=== PATIENT | male | born 1940 | race Caucasian/White ===

== ENCOUNTER 2017-06-29 08:32 | Emergency (ER) | payer MEDICARE, BC ==
[~2017-06-29] VITALS: Ht 172.7 cm; Wt 97.3 kg
[~2017-06-29 08:32] MED LIST: ACIPHEX20 MG PO; DIFLUCAN100 MG PO; LIPITOR20 MG PO; ZETIA10 MG PO
[2017-06-29] MEDS ORDERED: HYDROCO/APAP1 TA9 PO (09:07)
[2017-06-29 09:17] LABS: HEMATOCRIT 47.3 % (39.0-50.0); HEMOGLOBIN 15.6 g/dl (14.0-18.0); IMMATURE GRANULOCYTES 0.4 % (0.0-1.0); MEAN CELL VOLUME 97.5 fL CALC (80.0-100.0); MEAN CORPUSCULAR HGB 32.2 pG CALC (26.0-32.0); NEUT# 10.19 thou/uL (1.82-7.42); RED BLOOD COUNT 4.85 mill/uL (4.70-6.10); RED CELL DISTRI WIDTH 13.2 % (11.5-15.5)
[2017-06-29 09:44] LABS: ALBUMIN 4.5 g/dL (3.2-5.0); ALKALINE PHOSPHATASE 93 u/l (38-126); AMYLASE 78 u/l (30-110); ANION GAP 18 (6-22 (CALC)); BILIRUBIN, TOTAL 0.5 mg/dL (0.0-1.4); BUN 24 mg/dL (8-23); BUN/CREATININE RATIO 20 (12-20 (CALC)); CARBON DIOXIDE 24 mmol/l (22-30); CHLORIDE 104 mmol/l (95-108); CREATININE 1.2 mg/dL (0.7-1.3); GFR 59 ML/MIN (>=60 (CALC)); GFR FOR AFR.AMER. > 60 ML/MIN (>=60 (CALC)); LIPASE 98 u/l (23-300); POTASSIUM 4.1 mmol/l (3.5-5.1); SGPT/ALT 23 u/l (11-66); SODIUM 143 mmol/l (137-146); TOTAL PROTEIN 8.1 g/dL (6.3-8.2)
[2017-06-29 09:46] LABS: SGOT/AST 37 u/l (19-48)
[2017-06-29 09:52] LABS: MYOGLOBIN 58 ng/mL (0 - 121)
[2017-06-29 10:21] LABS: URINE BILIRUBIN - DIPSTICK NEGATIVE (NEGATIVE); URINE BLOOD DIPSTICK LARGE (NEGATIVE); URINE COLOR YELLOW; URINE GLUCOSE - DIPSTICK NEGATIVE (NEGATIVE); URINE KETONE NEGATIVE (NEGATIVE); URINE LEUK ESTERASE NEGATIVE (NEGATIVE); URINE NITRITE - DIPSTICK NEGATIVE (Negative); URINE PROTEIN - DIPSTICK TRACE mg/dL (NEG-TRACE); URINE SPECIFIC GRAVITY >=1.030; URINE UROBILINOGEN - DIPSTICK 0.2 E.U./dL (0.2)
[2017-06-29 10:23] LABS: URINE CLARITY SL CLOUDY
[2017-06-29] MEDS ORDERED: TAMSULOSIN0.4 MG PO (11:40)
[2017-06-29] MEDS ORDERED: PERCOCET 5/325M1 TAB PO (11:40)
[2017-06-29] MEDS ORDERED: CIPROFLOXACIN250 MG PO (11:40)
[2017-06-29 12:36] VITALS: BP 131/71
== END 2017-06-29 12:36 | disposition home or self-care (01) ==
LOC: ED 08:32
PROVIDERS: Emergency Medicine
DX: N13.2 Hydronephrosis with renal and ureteral calculous obstruction (principal); R10.32 Left lower quadrant pain; R11.2 Nausea with vomiting, unspecified

== ENCOUNTER 2017-07-01 19:08 | Emergency (ER) | payer MEDICARE, BC ==
[~2017-07-01] VITALS: Ht 172.7 cm; Wt 97.2 kg
[~2017-07-01 19:08] MED LIST changes: +CIPROFLOXACIN250 MG PO; +HYDROCO/APAP1 TA9 PO; +PERCOCET 5/325M1 TAB PO; +TAMSULOSIN0.4 MG PO
[2017-07-01 19:50] LABS: HEMATOCRIT 43.3 % (39.0-50.0); HEMOGLOBIN 14.3 g/dl (14.0-18.0); IMMATURE GRANULOCYTES 0.4 % (0.0-1.0); MEAN CELL VOLUME 97.7 fL CALC (80.0-100.0); MEAN CORPUSCULAR HGB 32.3 pG CALC (26.0-32.0); NEUT# 10.47 thou/uL (1.82-7.42); RED BLOOD COUNT 4.43 mill/uL (4.70-6.10); RED CELL DISTRI WIDTH 13.3 % (11.5-15.5)
[2017-07-01 20:09] LABS: ALBUMIN 4.2 g/dL (3.2-5.0); ALKALINE PHOSPHATASE 88 u/l (38-126); AMYLASE 34 u/l (30-110); ANION GAP 18 (6-22 (CALC)); BILIRUBIN, TOTAL 0.7 mg/dL (0.0-1.4); BUN 19 mg/dL (8-23); BUN/CREATININE RATIO 15 (12-20 (CALC)); CARBON DIOXIDE 27 mmol/l (22-30); CHLORIDE 100 mmol/l (95-108); CREATININE 1.2 mg/dL (0.7-1.3); GFR 59 ML/MIN (>=60 (CALC)); GFR FOR AFR.AMER. > 60 ML/MIN (>=60 (CALC)); LIPASE 42 u/l (23-300); POTASSIUM 4.2 mmol/l (3.5-5.1); SGOT/AST 23 u/l (19-48); SGPT/ALT 33 u/l (11-66); SODIUM 140 mmol/l (137-146); TOTAL PROTEIN 7.3 g/dL (6.3-8.2)
[2017-07-01 20:09] LABS: URINE BILIRUBIN - DIPSTICK NEGATIVE (NEGATIVE); URINE BLOOD DIPSTICK LARGE (NEGATIVE); URINE COLOR YELLOW; URINE GLUCOSE - DIPSTICK NEGATIVE (NEGATIVE); URINE KETONE 15 mg/dL (NEGATIVE); URINE LEUK ESTERASE TRACE (NEGATIVE); URINE NITRITE - DIPSTICK NEGATIVE (Negative); URINE PROTEIN - DIPSTICK TRACE mg/dL (NEG-TRACE); URINE UROBILINOGEN - DIPSTICK 0.2 E.U./dL (0.2)
[2017-07-01 20:16] LABS: URINE CLARITY CLEAR
[2017-07-01 20:32] LABS: URINE RBC TNTC RBC/hpf (0-5)
[2017-07-01 20:33] LABS: URINE SQUAMOUS EPITHELIAL CELL FEW EPI/hpf (0-FEW)
[2017-07-01] MEDS ORDERED: CIPROFLOXACN500 MG PO (21:16)
[2017-07-01] MEDS ORDERED: MIRALAX3350 N1 PO (21:19)
[2017-07-01 21:52] VITALS: BP 138/93
== END 2017-07-01 22:06 | disposition home or self-care (01) ==
LOC: ED 19:08
PROVIDERS: Emergency Medicine
DX: N13.6 Pyonephrosis (principal); I10 Essential (primary) hypertension; R50.9 Fever, unspecified; R10.32 Left lower quadrant pain
CPT/HCPCS: J1956; Q9967

== ENCOUNTER 2022-03-18 14:03 | Emergency (ER) | payer MEDICARE, BC ==
[~2022-03-18] VITALS: Ht 172.7 cm; Wt 81.0 kg
[~2022-03-18 14:03] MED LIST changes: +CIPROFLOXACN500 MG PO; +MIRALAX3350 N1 PO
[2022-03-18] MEDS ORDERED: DOXY-CAPS100 MG PO (15:46)
[2022-03-18 15:52] VITALS: BP 141/100
== END 2022-03-18 16:09 | disposition home or self-care (01) ==
LOC: ED 14:03
DX: S61.411A Laceration without foreign body of right hand, initial encounter (principal); W22.09XA Striking against other stationary object, initial encounter

== ENCOUNTER 2022-05-19 09:24 | Day surgery (SDC) | payer MEDICARE, BC ==
[~2022-05-19] VITALS: Ht 172.7 cm; Wt 83.0 kg
[~2022-05-19 09:24] MED LIST changes: +BUPROPION150 M3 PO; +DOXY-CAPS100 MG PO; +OMEPRAZOLE DR40 MG PO
[2022-05-19 11:15] VITALS: BP 152/82
== END 2022-05-19 11:33 | disposition home or self-care (01) ==
LOC: ENDO 09:24 → ORM 12:40
PROVIDERS: ATTEND Internal Medicine Gastroenterology
PROC: 0D738ZZ Dilation of Lower Esophagus, Via Natural or Artificial Opening Endoscopic (ICD-10-PCS; principal; 2022-05-19)
PROC: 0DB78ZX Excision of Stomach, Pylorus, Via Natural or Artificial Opening Endoscopic, Diagnostic (ICD-10-PCS; 2022-05-19)
DX: K22.5 Diverticulum of esophagus, acquired (principal); K22.2 Esophageal obstruction; K29.70 Gastritis, unspecified, without bleeding; K21.9 Gastro-esophageal reflux disease without esophagitis; I10 Essential (primary) hypertension; J44.9 Chronic obstructive pulmonary disease, unspecified; G47.30 Sleep apnea, unspecified; F32.A Depression, unspecified; E66.01 Morbid (severe) obesity due to excess calories

== ENCOUNTER 2023-05-10 18:11 | Emergency (ER) | payer MEDICARE, BC ==
[~2023-05-10] VITALS: Ht 172.7 cm; Wt 81.6 kg
[2023-05-10] VITALS (21 sets, daily range): BP systolic 102–151; BP diastolic 52–114
[2023-05-10 19:30] LABS: BASO% 0.4 % (0-3); EOS% 3.9 % (0-8); HEMATOCRIT 41.3 % (39.0-50.0); HEMOGLOBIN 13.2 g/dl (14.0-18.0); IMMATURE GRANULOCYTES 0.1 % (0.0-5.0); LYMPH% 17.4 % (15-41); MEAN CELL VOLUME 96.7 fL CALC (80.0-100.0); MEAN CORPUSCULAR HGB 30.9 pG CALC (26.0-32.0); MONO% 8.8 % (2-13); NEUT# 9.42 thou/uL (1.82-7.42); NEUT% 69.4 % (42-76); RED BLOOD COUNT 4.27 mill/uL (4.70-6.10); RED CELL DISTRI WIDTH 14.1 % (11.5-15.5)
[2023-05-10 19:43] LABS: ALBUMIN 4.1 g/dL (3.2-5.0); ALKALINE PHOSPHATASE 73 u/l (38-126); ANION GAP 12 (6-22 (CALC)); BILIRUBIN, TOTAL 0.4 mg/dL (0.2-1.3); BUN 17 mg/dL (8-23); BUN/CREATININE RATIO 20 (12-20 (CALC)); CARBON DIOXIDE 27 mmol/l (22-30); CHLORIDE 104 mmol/l (95-108); CREATININE 0.9 mg/dL (0.7-1.3); GFR FOR AFR.AMER. > 60 ML/MIN (>=60 (CALC)); GFR OTHER RACES > 60 ML/MIN (>=60 (CALC)); POTASSIUM 4.1 mmol/l (3.5-5.1); SGOT/AST 30 u/l (19-48); SODIUM 139 mmol/l (137-146); TOTAL PROTEIN 7.2 g/dL (6.3-8.2)
== END 2023-05-11 01:42 | disposition home or self-care (01) ==
LOC: ED 18:11
PROVIDERS: Nurse Practitioner Family
DX: T18.9XXA Foreign body of alimentary tract, part unspecified, initial encounter (principal); W44.F3XA Food entering into or through a natural orifice, initial encounter